=== PATIENT | male | born 1985 | race Caucasian/White ===

== ENCOUNTER 2018-03-19 21:19 | Emergency (ER) | payer MEDICAID ==
[~2018-03-19] VITALS: Ht 170.2 cm; Wt 68.2 kg
[2018-03-19 22:39] LABS: BASOPHILS % (AUTO) 0.5 % (0.0-2.0); EOSINOPHILS % (AUTO) 2.7 % (1.0-6.0); HEMOGLOBIN 14.5 g/dL (13.5-17.5); LYMPHOCYTES # (AUTO) 2.2 K/uL (1.0-4.8); LYMPHOCYTES % (AUTO) 35.1 % (22.0-44.0); MEAN CORPUSCULAR HEMOGLOBIN 29.7 pg (26.0-34.0); MEAN CORPUSCULAR HGB CONC 34.5 G/dL (31.0-37.0); MEAN CORPUSCULAR VOLUME 86 fL (80-100); MONOCYTES # (AUTO) 0.6 K/uL (0.1-1.0); MONOCYTES % (AUTO) 9.4 % (2.0-9.0); NEUTROPHILS # (AUTO) 3.2 K/uL (1.8-7.7); NEUTROPHILS % (AUTO) 52.3 % (40.0-70.0); PLATELET COUNT (AUTO) 151 K/uL (150-450); RED BLOOD CELL COUNT(AUTO) 4.89 MIL/uL (4.50-5.90); RED CELL DISTRIBUTION WIDTH 14.6 % (11.5-14.5)
[2018-03-19 23:08] LABS: ANION GAP 5 mmol/L (8-16); CALCIUM, TOTAL 8.3 mg/dL (8.8-10.5); CARBON DIOXIDE 30 mmol/L (22-29); CHLORIDE 102 mmol/L (98-107); CREATININE 1.23 mg/dL (0.60-1.30); GLOMERULAR FILTR. RATE CALC > 60 mL/min (>60); GLUCOSE,RANDOM 99 mg/dL (70-110); POTASSIUM 3.9 mmol/L (3.5-5.1); SODIUM SERUM 137 mmol/L (136-145); UREA NITROGEN, BLOOD 18 mg/dL (7-18)
[2018-03-19 23:17] LABS: ALANINE AMINOTRANSFERASE 55 U/L (12-78); ALBUMIN 3.9 g/dL (3.4-5.0); ALKALINE PHOSPHATASE 99 U/L (46-116); ASPARTATE AMINOTRANSFERASE 22 U/L (15-37); BILIRUBIN,TOTAL 0.4 mg/dL (0.1-1.0); TOTAL PROTEIN, SERUM 7.5 g/dL (6.4-8.2)
[2018-03-20 03:35] VITALS: BP 106/74
[2018-03-20 03:48] LABS: AMPHET/METH SCREEN,URINE NEGATIVE (NEGATIVE); BARBITURATE SCREEN, URINE NEGATIVE (NEGATIVE); BENZODIAZEPINES SCREEN,URINE NEGATIVE (NEGATIVE); CANNABINOID SCREEN,URINE NEGATIVE (NEGATIVE); COCAINE SCREEN,URINE NEGATIVE (NEGATIVE); METHADONE SCREEN, URINE NEGATIVE (NEGATIVE); OPIATE SCREEN,URINE NEGATIVE (NEGATIVE)
[2018-03-20 03:49] LABS: PHENCYCLIDINE SCREEN,URINE NEGATIVE (NEGATIVE)
[2018-03-21] MEDS ORDERED: BENZ1TAB10 PO (12:44)
[2018-03-21] MEDS ORDERED: HALO5TAB2 PO (12:44)
[2018-03-21] MEDS ORDERED: SERT50TA12 PO (12:44)
== END 2018-03-20 05:45 | disposition home or self-care (01) ==
LOC: EMS 21:21
DX: F20.9 Schizophrenia, unspecified (principal)
CPT/HCPCS: 36415; 80053; 80307; 85025; 99284; G0480

== ENCOUNTER 2018-03-21 11:57 | Inpatient (IN) | payer MEDICAID ==
[~2018-03-21] VITALS: Ht 172.7 cm; Wt 64.4 kg
[2018-03-21] MEDS ORDERED: SERT50TA12 PO (12:44)
[2018-03-21] MEDS ORDERED: HALO5TAB2 PO (12:44)
[2018-03-21] MEDS ORDERED: BENZ1TAB10 PO (12:44)
[2018-03-21 13:17] LABS: BASOPHILS % (AUTO) 0.4 % (0.0-2.0); EOSINOPHILS % (AUTO) 0.4 % (1.0-6.0); HEMATOCRIT 41.4 % (41-53); HEMOGLOBIN 14.6 g/dL (13.5-17.5); LYMPHOCYTES # (AUTO) 1.4 K/uL (1.0-4.8); LYMPHOCYTES % (AUTO) 21.4 % (22.0-44.0); MEAN CORPUSCULAR HEMOGLOBIN 30.8 pg (26.0-34.0); MEAN CORPUSCULAR HGB CONC 35.2 G/dL (31.0-37.0); MEAN CORPUSCULAR VOLUME 88 fL (80-100); MONOCYTES # (AUTO) 0.6 K/uL (0.1-1.0); MONOCYTES % (AUTO) 9.2 % (2.0-9.0); NEUTROPHILS # (AUTO) 4.6 K/uL (1.8-7.7); NEUTROPHILS % (AUTO) 68.6 % (40.0-70.0); PLATELET COUNT (AUTO) 151 K/uL (150-450); RED BLOOD CELL COUNT(AUTO) 4.73 MIL/uL (4.50-5.90); RED CELL DISTRIBUTION WIDTH 14.5 % (11.5-14.5)
[2018-03-21 13:27] LABS: ANION GAP 6 mmol/L (8-16); CALCIUM, TOTAL 8.3 mg/dL (8.8-10.5); CARBON DIOXIDE 28 mmol/L (22-29); CHLORIDE 103 mmol/L (98-107); CREATININE 1.09 mg/dL (0.60-1.30); GLOMERULAR FILTR. RATE CALC > 60 mL/min (>60); GLUCOSE,RANDOM 90 mg/dL (70-110); SODIUM SERUM 137 mmol/L (136-145); UREA NITROGEN, BLOOD 20 mg/dL (7-18)
[2018-03-21 13:33] LABS: ALANINE AMINOTRANSFERASE 60 U/L (12-78); ALBUMIN 4.1 g/dL (3.4-5.0); ALKALINE PHOSPHATASE 98 U/L (46-116); ASPARTATE AMINOTRANSFERASE 28 U/L (15-37); BILIRUBIN,TOTAL 0.7 mg/dL (0.1-1.0); TOTAL PROTEIN, SERUM 7.7 g/dL (6.4-8.2)
[2018-03-21] MEDS ORDERED: LORazepam 2 MG TABLET PO ONE (13:45)
[2018-03-21 14:58] LABS: AMPHET/METH SCREEN,URINE NEGATIVE (NEGATIVE); BARBITURATE SCREEN, URINE NEGATIVE (NEGATIVE); BENZODIAZEPINES SCREEN,URINE NEGATIVE (NEGATIVE); CANNABINOID SCREEN,URINE NEGATIVE (NEGATIVE); COCAINE SCREEN,URINE NEGATIVE (NEGATIVE); METHADONE SCREEN, URINE NEGATIVE (NEGATIVE); OPIATE SCREEN,URINE NEGATIVE (NEGATIVE)
[2018-03-21 15:03] LABS: PHENCYCLIDINE SCREEN,URINE NEGATIVE (NEGATIVE)
[2018-03-21 19:15] VITALS: BP 118/71
[2018-03-21 19:48] VITALS: BP 118/71
[2018-03-21] MEDS: BENZTROPINE MESYLATE 1 MG TABLET PO SCH (20:33)
[2018-03-21] MEDS: LORazepam 2 MG TABLET PO PRN (20:33)
[2018-03-21] MEDS: HALOPERIDOL 5 MG TABLET PO SCH (20:33)
[2018-03-22 06:49] VITALS: BP 113/64
[2018-03-22 08:02] VITALS: BP 125/86
[2018-03-22] MEDS: HALOPERIDOL 5 MG TABLET PO SCH ×2 (09:00→21:00)
[2018-03-22 09:06] LABS: CHOL/HDL RATIO 3.1 (4.2-7.3); FREE T4 (FREE THYROXINE) 0.71 ng/dL (0.76-1.46); THYROID STIMULATING HORMONE 1.48 uIU/mL (0.36-3.74)
[2018-03-22] MEDS: BENZTROPINE MESYLATE 1 MG TABLET PO SCH ×2 (09:07→21:00)
[2018-03-22] MEDS: SERTRALINE HCL 50 MG TABLET PO SCH (09:07)
[2018-03-22] MEDS ORDERED: DOCUSATE SODIUM 100 MG CAPSULE PO PRN (14:15)
[2018-03-22] MEDS ORDERED: IBUPROFEN 400 MG TABLET PO PRN (14:15)
[2018-03-22] MEDS ORDERED: PETROLATUM,WHITE 71 GM JELLY TP PRN (14:15)
[2018-03-22] MEDS ORDERED: ALBUTEROL SULFATE HFA 90 MCG/PUFF 8 GM INHALER IH PRN (14:15)
[2018-03-22] MEDS ORDERED: ACETAMINOPHEN 325 MG TABLET PO PRN (14:15)
[2018-03-22] MEDS ORDERED: MAGNESIUM HYDROXIDE SUSPENSION 30 ML UDCUP PO PRN (14:15)
[2018-03-22] MEDS ORDERED: MAG HYDROX/AL HYDROX/SIMETH ES 30 ML SUSPENSION UDCUP PO PRN (14:15)
[2018-03-22 16:00] VITALS: BP 138/70
[2018-03-22] MEDS: LORazepam 2 MG TABLET PO PRN (16:41)
[2018-03-22] MEDS: ZOLPIDEM TARTRATE 10 MG TABLET PO PRN (20:47)
[2018-03-23 02:07] VITALS: BP 113/81
[2018-03-23] MEDS: LEVOTHYROXINE SODIUM 25 MCG TABLET PO SCH (06:23)
[2018-03-23 08:02] VITALS: BP 115/66
[2018-03-23] MEDS: SERTRALINE HCL 50 MG TABLET PO SCH (08:31)
[2018-03-23] MEDS: LORazepam 2 MG TABLET PO PRN ×2 (08:31→18:44)
[2018-03-23] MEDS: BENZTROPINE MESYLATE 1 MG TABLET PO SCH ×2 (08:31→20:37)
[2018-03-23] MEDS: HALOPERIDOL 5 MG TABLET PO SCH (09:00)
[2018-03-23] MEDS: QUEtiapine FUMARATE 100 MG TABLET PO SCH ×2 (10:40→20:37)
[2018-03-23 16:34] VITALS: BP 119/73
[2018-03-23] MEDS: ZOLPIDEM TARTRATE 10 MG TABLET PO PRN (22:25)
[2018-03-24 06:17] VITALS: BP 106/67
[2018-03-24] MEDS: LEVOTHYROXINE SODIUM 25 MCG TABLET PO SCH (06:39)
[2018-03-24 08:02] VITALS: BP 111/62
[2018-03-24] MEDS: BENZTROPINE MESYLATE 1 MG TABLET PO SCH ×2 (08:36→21:00)
[2018-03-24] MEDS: SERTRALINE HCL 50 MG TABLET PO SCH (08:36)
[2018-03-24] MEDS: QUEtiapine FUMARATE 100 MG TABLET PO SCH ×2 (08:36→21:00)
[2018-03-24 16:00] VITALS: BP 110/60
[2018-03-24] MEDS: LORazepam 2 MG TABLET PO PRN (16:25)
[2018-03-24] MEDS: ZOLPIDEM TARTRATE 10 MG TABLET PO PRN (21:00)
[2018-03-25 05:55] VITALS: BP 118/72
[2018-03-25] MEDS: LEVOTHYROXINE SODIUM 25 MCG TABLET PO SCH (06:26)
[2018-03-25 08:14] VITALS: BP 112/68
[2018-03-25] MEDS: BENZTROPINE MESYLATE 1 MG TABLET PO SCH ×2 (08:46→20:57)
[2018-03-25] MEDS: SERTRALINE HCL 50 MG TABLET PO SCH (08:46)
[2018-03-25] MEDS: QUEtiapine FUMARATE 100 MG TABLET PO SCH ×5 (08:46→20:57)
[2018-03-25] MEDS: HALOPERIDOL 5 MG TABLET PO PRN (09:36)
[2018-03-25] MEDS: LORazepam 2 MG TABLET PO PRN ×2 (09:36→18:35)
[2018-03-25 16:00] VITALS: BP 111/72
[2018-03-25] MEDS: ZOLPIDEM TARTRATE 10 MG TABLET PO PRN (20:57)
[2018-03-26 06:24] VITALS: BP 108/69
[2018-03-26] MEDS: LEVOTHYROXINE SODIUM 25 MCG TABLET PO SCH (06:32)
[2018-03-26] MEDS: BENZTROPINE MESYLATE 1 MG TABLET PO SCH ×2 (08:03→20:50)
[2018-03-26] MEDS: SERTRALINE HCL 50 MG TABLET PO SCH (08:03)
[2018-03-26] MEDS: QUEtiapine FUMARATE 100 MG TABLET PO SCH ×2 (08:03→20:50)
[2018-03-26 08:27] VITALS: BP 118/68
[2018-03-26] MEDS: LORazepam 2 MG TABLET PO PRN ×2 (10:49→16:29)
[2018-03-26] MEDS ORDERED: LOPERAMIDE HCL 2 MG CAPSULE PO PRN (11:45)
[2018-03-26 16:00] VITALS: BP 117/69
[2018-03-26] MEDS: HALOPERIDOL 5 MG TABLET PO PRN (16:29)
[2018-03-26] MEDS: ZOLPIDEM TARTRATE 10 MG TABLET PO PRN (21:28)
[2018-03-27 06:10] VITALS: BP 105/64
[2018-03-27] MEDS: LEVOTHYROXINE SODIUM 25 MCG TABLET PO SCH (06:51)
[2018-03-27 08:05] VITALS: BP 116/69
[2018-03-27] MEDS: BENZTROPINE MESYLATE 1 MG TABLET PO SCH ×2 (08:44→20:49)
[2018-03-27] MEDS: LORazepam 2 MG TABLET PO PRN (08:44)
[2018-03-27] MEDS: QUEtiapine FUMARATE 100 MG TABLET PO SCH ×2 (08:44→20:49)
[2018-03-27] MEDS: SERTRALINE HCL 50 MG TABLET PO SCH (08:44)
[2018-03-27 16:30] VITALS: BP 116/68
[2018-03-27] MEDS: ZOLPIDEM TARTRATE 10 MG TABLET PO PRN (21:18)
[2018-03-28 06:14] VITALS: BP 118/74
[2018-03-28] MEDS: LEVOTHYROXINE SODIUM 25 MCG TABLET PO SCH (06:14)
[2018-03-28 08:22] VITALS: BP 108/68
[2018-03-28] MEDS: HALOPERIDOL 5 MG TABLET PO PRN (09:05)
[2018-03-28] MEDS: BENZTROPINE MESYLATE 1 MG TABLET PO SCH (09:05)
[2018-03-28] MEDS: QUEtiapine FUMARATE 100 MG TABLET PO SCH (09:05)
[2018-03-28] MEDS: LORazepam 2 MG TABLET PO PRN (09:05)
[2018-03-28] MEDS: SERTRALINE HCL 50 MG TABLET PO SCH (09:05)
[2018-03-28] MEDS ORDERED: QUET100T33 PO (09:17)
[2018-03-28] MEDS ORDERED: SERT50TA12 PO (09:17)
[2018-03-28] MEDS ORDERED: BENZ1TAB10 PO (09:17)
[2018-03-28] MEDS ORDERED: LEVO25TA9 PO (09:36)
== END 2018-03-28 10:15 | disposition home or self-care (01) | DRG 750 ==
LOC: EMS 11:58 → B3A 16:43
DX: F25.0 Schizoaffective disorder, bipolar type (principal); R45.850 Homicidal ideations; R45.851 Suicidal ideations; E03.9 Hypothyroidism, unspecified; F41.9 Anxiety disorder, unspecified; G47.00 Insomnia, unspecified; K59.00 Constipation, unspecified; Z79.899 Other long term (current) drug therapy
CPT/HCPCS: 84439; 84443; 87081; 99285; G0480; J3535